=== PATIENT | female | born 1985 | race Caucasian/White ===

== ENCOUNTER → 2016-10-06 | Outpatient (CLI) | payer BC ==
[~2016-10-06] MED LIST: HYDR25SU7 RECTALLY; IBUP-1547 PO; IOHEXOL 300 MG/ML 100ml INJECTION ONE; NORE-95 PO; NORMAL SALINE 100 ML ONE; OMEP40CA52 PO; SALINE FLUSH 10ml SYRINGE ONE
--- NOTE | 2016-10-06 15:02 | DI ---
Indication: ITS.REASON: R10.32 LLQ ABD PAIN; R10.2 PELVIC PAIN; R10.13 EPIGASTRIC PAIN PROCEDURE: CT ABD/PELVIS W/CONTRAST ONLY: Encounter: Initial Comparison: Gallbladder ultrasound dated July 13, 2016 Technique: Axial CT images were performed through the abdomen and pelvis after the administration of intravenous contrast. Coronal and sagittal two-dimensional reformats. Automated Exposure Control and Iterative Reconstruction dose reducing techniques were utilized. Contrast: Omnipaque 300 100 mL Findings: The lung bases are clear. The liver is normal. The gallbladder, spleen, pancreas and adrenal glands are within normal limits. Kidneys are normal. No abdominal or pelvic adenopathy. Bladder is normal. Uterus and ovaries are normal for age. No free fluid. No evidence of a bowel obstruction. Prior appendectomy changes. Bone windows are normal. Impression: No acute disease process seen. Normal exam. .
== END ==
LOC: IMA 13:04
PROVIDERS: ATTEND Internal Medicine
DX: R10.32 Left lower quadrant pain (principal); R10.2 Pelvic and perineal pain; R10.13 Epigastric pain
CPT/HCPCS: 74177; J7050; Q9967